=== PATIENT | male | born 1935 | race Caucasian/White ===

== ENCOUNTER 2016-09-12 09:56 | Day surgery (SDC) | payer OTHER ==
--- NOTE | 2016-08-29 16:07 | GHP ---
[f rep st] HISTORY AND PHYSICAL DATE OF ADMISSION: 09/09/2016 HISTORY OF PRESENT ILLNESS: The patient is a 80-year-old male, who comes to our office for the first time referred by Dr. Luke for evaluation of a right inguinal hernia. The patient reports pain, a palpable mass over his right groin and has had previous surgery in this area. The patient had hernia surgery on the left side. ALLERGIES: Amoxicillin, Bactrim, Levaquin, sulfa, Xarelto. MEDICATIONS: Ambien, aspirin, Bystolic, flecainide, Singulair, Nasacort, ProAir , Viagra. PAST MEDICAL HISTORY: Asthma, atrial fibrillation, bicuspid aortic valve. Erectile dysfunction. Pacemaker placement. Septic arthritis, left knee. PAST SURGICAL HISTORY: Arthroscopic shoulder surgery bilaterally. Left inguinal hernia surgery, and incision and drainage of left septic knee. SOCIAL HISTORY: 2 to 3 alcoholic drinks per day, nonsmoker, no illegal drug use. REVIEW OF SYSTEMS: Negative review of systems. PHYSICAL EXAM: GENERAL: The patient is an older male in no apparent distress. HEAD/NECK: Normocephalic, atraumatic. CHEST: CTA bilaterally. HEART: Regular rhythm and rate. ABDOMEN: Right inguinal hernia present. EXTREMITIES : No lower extremity edema. IMPRESSION: A 80-year-old male with a right inguinal hernia. RECOMMENDATION: Laparoscopic and likely open repair of right inguinal hernia was discussed with the patient in detail, patient elected to proceed with scheduling. Risks include recurrent hernia, infection, scrotal edema, hematoma or seroma development. The patient elects to proceed with scheduling surgery for 09/09/2016. Prior to surgery, he will obtain cardiac clearance from Dr. Cueto, who can be reached at [phone]. /[id number]/MODL MTDD
[~2016-09-12 09:56] MED LIST: BUPIVACAINE 0.5% 30 ML SDV ONE
[2016-09-12] MEDS ORDERED: LIDOCAINE 1% 5 ML SDV ONE (10:22)
[2016-09-12] MEDS ORDERED: LIDOCAINE 1% 5 ML SDV ID PRN (11:00)
[2016-09-12] MEDS ORDERED: ceFAZolin 2 GM/DEXTROSE 100 ML IV ONE (11:00)
[2016-09-12] MEDS ORDERED: LR 1,000 ML IV ONE (11:00)
[2016-09-12] MEDS ORDERED: PROPOFOL 200 MG/20 ML VIAL ONE (11:41)
[2016-09-12] MEDS ORDERED: fentaNYL 100 MCG/2 ML INJ ONE (11:41)
[2016-09-12] MEDS ORDERED: DEXAMETHASONE 4 MG/ML VIAL ONE (11:41)
[2016-09-12] MEDS ORDERED: ONDANSETRON 4 MG/2 ML VIAL ONE (11:41)
[2016-09-12] MEDS ORDERED: LIDOCAINE 2% 100 MG/5 ML SYR IVP ONE (11:41)
[2016-09-12] MEDS ORDERED: MIDAZOLAM 2 MG/2 ML VIAL ONE (12:36)
[2016-09-12] MEDS ORDERED: ROCURONIUM 50 MG/5 ML VIAL ONE (12:47)
[2016-09-12] MEDS ORDERED: PHENYLEPHRINE HCL 100 MCG/ML SYR ONE (13:10)
[2016-09-12] MEDS ORDERED: SUGAMMADEX SODIUM 200 MG/2 ML VIAL IVP ONE (13:51)
[2016-09-12] MEDS ORDERED: HYDROCODONE/APAP 5/325 TAB ONE (14:49)
--- NOTE | 2016-09-14 17:52 | GOP ---
[f rep st] OPERATIVE REPORT DATE OF OPERATION: 09/12/2016 SURGEON: Andrew Manning MD PAVER OPERATOR: KAREN Mac ANESTHESIOLOGIST: Dr. Marcos PREOPERATIVE DIAGNOSIS: Right inguinal hernia. POSTOPERATIVE DIAGNOSIS: Right inguinal hernia and recurrent left inguinal hernia. PROCEDURE PERFORMED: Lap bilateral inguinal hernioraphies, recurrent on left FINDINGS: Patient was found to have bilateral direct and femoral hernias, left and right. Right was much larger than the left. There were no indirect sacs. DESCRIPTION OF PROCEDURE: Patient taken to the operating room, where he received satisfactory general endotracheal anesthesia by Dr. Marcos. He was placed in the supine position, and prepped and draped in the usual sterile fashion. Infraumbilical incision was made. Dissection was carried to down the rectus sheath. Subfascial tunnel in the preperitoneal space, which was dissected free with a balloon dissector. That was replaced with a CO2 insufflation trocar. Two other trocars were placed in the midline under direct vision. Kirk's ligament was exposed bilaterally. The cords were mobilized bilaterally. Peritoneum was dissected off the cord structures. There were no significant indirect sacs. Bilateral direct defects and bilateral femoral defects were exposed. Their contents were reduced. On the right side, a Covidien polyester mesh patch was placed and secured in place with a Tacker, securing it to Kirk's ligament, to the lacunar ligament, to the anterior abdominal wall, and lateral abdominal wall outside the internal ring. Hemostasis was assured. On the left recurrent side, a 3D mesh polypropylene patch was placed. It was also anchored with the Tacker to Kirk's ligament, the lacunar ligament, to the anterior abdominal wall. Trocars were removed under direct vision. Pneumoperitoneum was released. Trocar sites were closed with 0 Vicryl for the fascia, 4-0 Vicryl subcuticular stitch for the skin. All layers were infiltrated with 0.5% Marcaine. Blood loss was negligible. There were no complications, was taken to the recovery room in good condition. /[id number]/MODL MTDD
== END 2016-09-12 16:17 | disposition home or self-care (01) ==
LOC: FSGY 09:56
PROVIDERS: ATTEND Surgery
DX: K40.21 Bilateral inguinal hernia, without obstruction or gangrene, recurrent (principal); K41.00 Bilateral femoral hernia, with obstruction, without gangrene, not specified as recurrent; I48.91 Unspecified atrial fibrillation; I10 Essential (primary) hypertension; J45.909 Unspecified asthma, uncomplicated; Q23.1 Congenital insufficiency of aortic valve; Z95.0 Presence of cardiac pacemaker
CPT/HCPCS: 49550; 49650; 49651; C1727; C1781; J0690; J1100; J2001; J2250; J2370; J2405; J2704; J3010

== ENCOUNTER → 2016-12-02 | Outpatient (CLI) | payer OTHER | LOC: CIMAGING 10:04 | PROVIDERS: ATTEND Nurse Practitioner | DX: R05 Cough (principal); J06.9 Acute upper respiratory infection, unspecified | CPT/HCPCS: 71020; G0463 ==

== ENCOUNTER 2017-07-05 22:48 | Emergency (ER) | payer OTHER ==
--- NOTE | 2017-07-05 22:53 | EDPHY ---
H & P Stated Complaint: Shortness of breath Time Seen by Provider: 07/05/17 22:52 HPI/ROS: CHIEF COMPLAINT: shortness of breath HISTORY OF PRESENT ILLNESS: see 81-year-old male with a comp complex history of bicuspid aortic valve, atrial fibrillation, tachy-melody syndrome with subsequent pacemaker, BPH who presents with shortness of breath. This began approximately noon today. Prior to that he had taken walking and felt well. He had no exercise intolerance at that time nor prior to this past week. [place] of breath has persisted all day. He feels like he cannot catch a full breath. However at the same token he is able to talk to me in full sentences. He does not feel like he has been bronchospastic however he did take 2 puffs of treatment of an inhaler at around 8 o'clock with no relief. He attempted to go to sleep, found it tough to utilize his mask well as he has a CPAP mask for sleep apnea would make an odd sound, did not give him relief, and so decided to come in. At no point today did he have any chest discomfort or soreness. There is no diaphoresis or pleuritic pain. He has had no recent prolonged immobilization or travel hospitalization. He does recall having 1 prior episode similar to this but they cannot find anything wrong with him Former smoker-quit when he was 42 No occupational exposure for lung disease He does have some underlying lung disease as he has an inhaler at home however cannot elaborate further. Never told he has emphysema. Has a CPAP mask for Sleep Apnea, no supplemental oxygen. Old chart review show O2 sats in mid to upper 90's on RA. PE/DVT risk factors Prior DVT/PE: No Immobilization: No Splint/Cast: No Surgery, recently: No Family history of hypercoaguable syndrome: No Unilateral leg swelling: No Obesity: No REVIEW OF SYSTEMS: Constitutional: No fever, no chills. Eyes: No discharge ENT: No sore throat. Cardiovascular: No chest pain, no palpitations. Respiratory: No cough or phlegm or wheezing. Gastrointestinal: No nausea vomiting or diarrhea. No abdominal pain. Genitourinary: No hematuria or frequency. Musculoskeletal: No back pain. No leg swelling or peripheral edema or calf pain. Skin: No rashes. Neurological: No headache. 10 point ROS otherwise negative Source: Patient Exam Limitations: No limitations - Personal History Tetanus Vaccine Date: 2009 - Medical/Surgical History PMH: Pacemaker for Bradycardia/ Atrial Fib / BPH/ HTN / Environmental Allergies Hx Asthma: Yes Hx Chronic Respiratory Disease: No Hx Diabetes: No Hx Cardiac Disease: No Hx Renal Disease: No Hx Cirrhosis: No Hx Alcoholism: No Hx HIV/AIDS: No Hx Splenectomy or Spleen Trauma: No Other PMH: bilateral shoulder surgery, inguinal hernia repair, BPH, arthritis, atrial tachycardia, asthma,seasonal allergies,htn. surg-bilat shoulder and pacemaker as well as green light prostate surgery - Family History Significant Family History: No pertinent family hx - Social History Smoking Status: Former smoker Alcohol Use: Heavy (2 drinks a day) Drug Use: None - Physical Exam Exam: General Appearance: Alert, no distress. Afebrile. Normal phonation. No respiratory distress. Speaks to me in full sentences. Thin man. Eyes: Pupils equal and round no pallor or injection. No icterus ENT, Mouth: Mucous membranes moist. Pharynx without erythema or exudate. TM Clear. Neck: No adenopathy. Supple. No JVD. Trachea in midline. Respiratory: There are no retractions, bibasilar dry brown slightly greater on the right. No rhonchi. Chest wall: Nontender to palpation. No crepitus. Cardiovascular: Regular rate and rhythm, no murmur. Rhythm strip shows paced rhythm. No JVD. Abdomen: Soft and nontender, no masses, bowel sounds normal. Femoral pulses equal. Neurological: Ox3. No motor weakness. Sensation intact. Gait nl. Skin: Warm and dry, no rashes. Musculoskeletal: No joint swelling. Extremities: No edema. Homans sign negative. No cords. Psychiatric: Normal affect. Patient is oriented X 3. Constitutional: Initial Vital Signs Temperature (C) 36.4 C 07/05/17 22:50 Heart Rate 60 07/05/17 22:50 Respiratory Rate 15 07/05/17 22:50 Blood Pressure 139/104 H 07/05/17 22:50 O2 Sat (%) 100 07/05/17 22:50 O2 Delivery Mode Room Air Allergies/Adverse Reactions: amoxicillin Allergy (Intermediate, Verified 09/04/16 15:39) hands peel levofloxacin [From Levaquin] Allergy (Verified 09/04/16 15:39) Unknown sulfamethoxazole [From Bactrim] Allergy (Verified 09/04/16 15:39) Unknown trimethoprim [From Bactrim] Allergy (Verified 09/04/16 15:39) Unknown Home Medications: Medication Instructions Recorded Aspirin [Aspirin 325 mg (*)] HS 02/20/15 Montelukast Sodium [Singulair 10 HS 02/20/15 mg (*)] [place]-3 Fatty Acids [Fish Oil 1000 BID 02/20/15 mg (*)] Bystolic 5 mg (*) HS 09/04/16 Flecainide Acetate BID 09/04/16 Herbals/Supplements -Info Only 09/04/16 Nasacort HS 09/04/16 Zolpidem Tartrate [Ambien 10 mg] 07/05/17 Medical Decision Making - Diagnostics EKG Interpretation: Ekg interpreted by me contemporaneously - See seperate report in [facility]. Summary: Paced rhythm. Left bundle-branch pattern as result. Imaging Results: Chest x-ray: Two view chest. Interpreted by [me, contemporaneously]. Films reviewed by me on the PACS system. Normal mediastinum. Hyperinflation is noted. Some decrease in pulmonary parenchyma compatible with emphysema. No effusions. Stable chest, except for hyperinflation. Imaging: I viewed and interpreted images myself ED Course/Re-evaluation: His O2 sat on room air was acceptable. His place on a continuous pulse oximeter on heart monitor. He continued to manifest left bundle branch block in the setting of pacemaker. At times his O2 sat would drop into the mid to high 80s such as 86-88 when sleeping as his respiratory rate would be around 8. This would come back up as soon as he became awake. A trial ventilation therapy was given with a DuoNeb any felt no better he still is sense that he could not get his full breath Laboratory studies as follows: Stable hemogram Normal WBC Undetectable troponin Negative D-dimer BNP normal Case reviewed with the ongoing hospitalist as he has left bundle-branch block. Dr. Soto related he was safe for outpatient evaluation and follow-up with his venetian blind cleaner and repairer Differential Diagnosis: Differential diagnosis includes but is not limited to the following: ACS, myocardial infarction, pneumothorax, pleurisy, pulmonary embolus, CHF, Pneumonia, bronchospasm, Asthma, anxiety, muscle strain. - Data Points Laboratory Results: Laboratory Results 07/05/17 23:02 07/05/17 23:02 07/05/17 07/05/17 07/05/17 23:02 23:02 23:02 WBC 8.50 10^3/uL 10^3/uL (3.80-9.50) RBC 4.64 10^6/uL 10^6/uL (4.40-6.38) Hgb 15.4 g/dL g/dL (13.7-17.5) Hct 45.0 % % (40.0-51.0) MCV 97.0 fL fL (81.5-99.8) MCH 33.2 pg pg (27.9-34.1) MCHC 34.2 g/dL g/dL (32.4-36.7) RDW 12.6 % % (11.5-15.2) Plt Count 215 10^3/uL 10^3/uL (150-400) MPV 11.5 fL fL (8.7-11.7) Neut % (Auto) 44.0 % % (39.3-74.2) Lymph % (Auto) 36.7 % % (15.0-45.0) [place] % (Auto) 8.2 % % (4.5-13.0) Eos % (Auto) 10.2 % H % (0.6-7.6) Baso % (Auto) 0.5 % % (0.3-1.7) Nucleat RBC Rel Count 0.0 % % (0.0-0.2) Absolute Neuts (auto) 3.74 10^3/uL 10^3/uL (1.70-6.50) Absolute Lymphs (auto) 3.12 10^3/uL H 10^3/uL (1.00-3.00) Absolute Monos (auto) 0.70 10^3/uL 10^3/uL (0.30-0.80) Absolute Eos (auto) 0.87 10^3/uL H 10^3/uL (0.03-0.40) Absolute Basos (auto) 0.04 10^3/uL 10^3/uL (0.02-0.10) Absolute Nucleated RBC 0.00 10^3/uL 10^3/uL (0-0.01) Immature Gran % 0.4 % % (0.0-1.1) Immature Gran # 0.03 10^3/uL 10^3/uL (0.00-0.10) D-Dimer 0.32 ug/mLFEU ug/mLFEU (0.00-0.50) Sodium 142 mEq/L mEq/L (134-144) Potassium 4.0 mEq/L mEq/L (3.5-5.2) Chloride 104 mEq/L mEq/L (97-110) Carbon Dioxide 26 mEq/l mEq/l (22-31) Anion Gap 12 mEq/L mEq/L (8-16) BUN 21 mg/dL mg/dL (7-23) Creatinine 1.1 mg/dL mg/dL (0.7-1.3) Estimated GFR > 60 Glucose 79 mg/dL mg/dL (70-100) Calcium 10.0 mg/dL mg/dL (8.5-10.4) Magnesium 2.0 mg/dL mg/dL (1.6-2.3) Troponin I < 0.012 ng/mL ng/mL (0.000-0.034) NT-Pro-B Natriuret Pep 134 pg/mL pg/mL (0-450) Medications Given: Discontinued Medications Albuterol/Ipratropium (Duoneb) 3 ml IH EDNOW ONE Stop: 07/05/17 23:37 Last Admin: 07/05/17 23:41 Dose: 3 ml Departure - Departure Disposition: Home, Routine, Self-Care Clinical Impression: Trouble breathing, Sleep apnea in adult Condition: Good Instructions: Dyspnea (ED) Additional Instructions: No change in medications Continue use her CPAP mask Call your venetian blind cleaner and repairer for recheck, Thursday morning Referrals: NONE *PRIMARY CARE P,. [Primary Care Provider] - As per Instructions
--- NOTE | 2017-07-05 22:59 | CPEKG ---
Heart Rate: 61 RR Interval: 984 P-R Interval: 199 QRSD Interval: 188 QT Interval: 492 QTC Interval: 496 QRS [place]: -77 T Wave [place]: 87 EKG Severity - ABNORMAL ECG - EKG Impression: ATRIAL and VENTRICULAR -PACED COMPLEXES Electronically Signed By: Gerson Morataya 13-Jul-2017 12:36:06
--- NOTE | 2017-07-05 22:59 | CPEKG ---
Heart Rate: 61 RR Interval: 984 P-R Interval: 199 QRSD Interval: 188 QT Interval: 492 QTC Interval: 496 QRS [place]: -77 T Wave [place]: 87 EKG Severity - ABNORMAL ECG - EKG Impression: ATRIAL and VENTRICULAR -PACED COMPLEXES Electronically Signed By: Gerson Morataya 13-Jul-2017 12:36:06
[2017-07-05 23:02] VITALS: TEMP 97.5
[2017-07-05 23:14] LABS: PLATELET COUNT 215 10^3/uL (150-400)
[2017-07-05] MEDS ORDERED: IPRATROPIUM/ALBUTEROL 3 ML DEYVIAL IH ONE (23:36)
[2017-07-06 00:54] VITALS: BP 113/75; PULSE 71; RESP 15; O2SAT 96
== END 2017-07-06 01:04 | disposition home or self-care (01) ==
LOC: CED 22:48
DX: R06.00 Dyspnea, unspecified (principal); G47.30 Sleep apnea, unspecified; J45.909 Unspecified asthma, uncomplicated; I10 Essential (primary) hypertension; Z79.82 Long term (current) use of aspirin; Z87.891 Personal history of nicotine dependence; Z95.0 Presence of cardiac pacemaker
CPT/HCPCS: 71020-PO; 80048-PO; 83735-PO; 83880-PO; 84484-PO; 85025-PO; 85378-PO

== ENCOUNTER → 2017-07-13 | Outpatient (CLI) | payer OTHER | LOC: FLAB 08:21 | PROVIDERS: ATTEND Internal Medicine | PROC: CP1Z1ZZ Planar Nuclear Medicine Imaging of Musculoskeletal System, All using Technetium 99m (Tc-99m) (ICD-10-PCS; principal; 2017-07-13) | DX: Z03.89 Encounter for observation for other suspected diseases and conditions ruled out (principal) | CPT/HCPCS: 78306; A9503 ==

== ENCOUNTER 2017-07-25 17:09 | Emergency (ER) | payer OTHER ==
[2017-07-25 17:19] VITALS: TEMP 97.5
--- NOTE | 2017-07-25 18:14 | EDPHY ---
H & P Stated Complaint: abd pain HPI/ROS: CHIEF COMPLAINT: Abdominal pain HISTORY OF PRESENT ILLNESS: The patient is a 81 y/o male with a pacemaker complaining of diffuse abdominal and mild back pain since yesterday morning. 6 days ago he saw his cash grain grower for shortness of breath and was diagnosed with inflammation of his lungs. He was prescribed Prednisone, which he took for 5 days. His last dose of Prednisone was yesterday at 13:00. His shortness of breath went away on his first day of prednisone. Two days ago he used a water enema after not moving his bowels for 4 days (not unusual for him). The enema produced some stool but he has not had a bowel movement since. Yesterday morning he developed diffuse waxing and waning abdominal pain as well as increased flatus. He took an antacid , Zantac, and GasX which provided no relief. Currently his abdominal pain is the worst it has been. It is constant, diffuse. Admits to drinking 2 alcoholic drinks a day. Denies nausea, vomiting, diarrhea, fever, dysuria, history of abdominal surgeries. REVIEW OF SYSTEMS: A ten point review of systems was performed and is negative with the exception of the items mentioned in the HPI. Past medical history: Hypertension Atrial tachycardia Asthma Constipation Past surgical history: Pacemaker Bilateral shoulder surgery Green light prostate surgery Family history: Denies Social history: at bedside Lives in [facility] General Appearance: Alert. Vital signs reviewed. Blood pressure 135/88. Eyes: Pupils equal and round, no conjunctival injection, no discharge. Anicteric. ENT, Mouth: Mucous membranes are moist, no oropharyngeal erythema or edema. Neck: No lymphadenopathy, supple. Respiratory: Lungs are clear to auscultation; no wheezes, rales, or rhonchi. Cardiovascular: Regular rate and rhythm; no murmur, rub, or gallop. Gastrointestinal: Midepigastric and RLQ tenderness. Abdomen is soft, no masses or organomegaly, bowel sounds normal. No peritoneal signs. Skin: Warm and dry, no rashes on exposed skin, normal color. Back: Nontender to palpation over the thoracolumbar spine. No CVAT. Extremities: No lower extremity edema, no calf tenderness or swelling. Neurological: Alert and oriented. Moving all four extremities easily and equally. Psychiatric: Normal affect. - Personal History Current Tetanus/Diphtheria Vaccine: Yes Tetanus Vaccine Date: 2010 - Medical/Surgical History Hx Asthma: Yes Hx Chronic Respiratory Disease: No Hx Diabetes: No Hx Cardiac Disease: Yes Hx Renal Disease: No Hx Cirrhosis: No Hx Alcoholism: No Hx HIV/AIDS: No Hx Splenectomy or Spleen Trauma: No Other PMH: bilateral shoulder surgery, inguinal hernia repair, BPH, arthritis, atrial tachycardia, asthma,seasonal allergies,htn. surg-bilat shoulder and pacemaker as well as green light prostate surgery - Social History Smoking Status: Former smoker Constitutional: Initial Vital Signs Temperature (C) 36.4 C 07/25/17 17:16 Heart Rate 73 07/25/17 17:16 Respiratory Rate 16 07/25/17 17:16 Blood Pressure 135/88 H 07/25/17 17:16 O2 Sat (%) 96 07/25/17 17:16 O2 Delivery Mode Room Air Allergies/Adverse Reactions: amoxicillin Allergy (Intermediate, Verified 07/25/17 17:14) hands peel levofloxacin [From Levaquin] Allergy (Verified 07/25/17 17:14) Unknown Sulfa (Sulfonamide Antibiotics) Allergy (Verified 07/25/17 17:14) sulfamethoxazole [From Bactrim] Allergy (Verified 07/25/17 17:14) Unknown trimethoprim [From Bactrim] Allergy (Verified 07/25/17 17:14) Unknown Home Medications: Medication Instructions Recorded Aspirin [Aspirin 325 mg (*)] HS 02/20/15 Montelukast Sodium [Singulair 10 HS 02/20/15 mg (*)] [place]-3 Fatty Acids [Fish Oil 1000 BID 02/20/15 mg (*)] Bystolic 5 mg (*) HS 09/04/16 Flecainide Acetate BID 09/04/16 Herbals/Supplements -Info Only 09/04/16 Nasacort HS 09/04/16 Zolpidem Tartrate [Ambien 10 mg] 07/05/17 Flovent 110 MCG Hfa MDI (*) 07/25/17 Medical Decision Making Procedures: The patient is a 81 y/o male presenting with midepigastric and RLQ tenderness. He has also been constipated more than usual. 75mcg IV Fentanyl administered. 1930: Reassessed patient, he is feeling much better and no longer has pain after Fentanyl. 2009: 30mL PO Maalox, 5mL PO Lidocaine, and 40mg IV Protonix administered. 2017: Reassessed patient, his pain is back but it is greatly reduced compared to when he initially presented to the ED. He is also having mild pain on the left side of his back. I discussed his negative lab results--WBC slightly up at 10.7, all else normal. BMP, LFTs, lipase all normal. Labs indicate that this is unlikely to be cholecystitis, pancreatitis. UA without evidence of infection ; no blood and I think kidney stone unlikely.He has had several colonoscopies without any abnormal results. Since his pain has not resolved an abdominopelvic CT will be preformed. CT shows moderate constipation, no other explanation for his pain. No ureterolithiasis (although the CT was done with contrast, not designed to look for ureteral stone). No appendicitis. No diverticulitis. His pain could be secondary to prednisone. Another consideration is constipation. Results relayed to patient. He is comfortable returning home. - Data Points Laboratory Results: Laboratory Results 07/25/17 18:50 07/25/17 18:50 Medications Given: Discontinued Medications Al Hydroxide/Mg Hydroxide (Maalox Susp) 30 ml PO EDNOW ONE Stop: 07/25/17 20:00 Last Admin: 07/25/17 20:09 Dose: 30 ml Fentanyl (Sublimaze) 75 mcg IVP EDNOW ONE Stop: 07/25/17 18:29 Last Admin: 07/25/17 19:00 Dose: 75 mcg Fentanyl (Sublimaze) 50 mcg IVP EDNOW ONE Stop: 07/25/17 21:24 Last Admin: 07/25/17 21:37 Dose: 50 mcg Lidocaine (Lidocaine 2% Viscous) 5 ml PO EDNOW ONE Stop: 07/25/17 20:00 Last Admin: 07/25/17 20:09 Dose: 5 ml Pantoprazole Sodium (Protonix) 40 mg IVP EDNOW ONE Stop: 07/25/17 19:59 Last Admin: 07/25/17 20:08 Dose: 40 mg Departure - Departure Disposition: Home, Routine, Self-Care Clinical Impression: Abdominal pain Qualifiers: Abdominal location: epigastric Qualified Code(s): R10.13 - Epigastric pain Condition: Good Instructions: Acute Abdominal Pain (ED) Additional Instructions: As we discussed, it is not clear what is causing your abdominal pain. I agree that it might be due to the prednisone you have been taking. I recommend that you continue with an acid blocking medication, such as Zantac or Prilosec. You can buy these [id number]. If you have new or concerning symptoms--unremitting severe pain, fever, vomiting , diarrhea--you should return for another evaluation. Follow up with your primary care physician. Referrals: Keshia Luke MD [Primary Care Provider] - As per Instructions Report Scribed for: Mine Jaramillo Report Scribed by: Vesna Mcguire Date of Report: 07/25/17 Time of Report: 18:43 Physician Review and Approval Statement: 07/25/17 18:14 Portions of this note were transcribed by the medical customer service representative. I, Dr. Mine Jaramillo, personally performed the history, physical exam, and medical decision- making; and confirmed the accuracy of the information in the transcribed note.
[2017-07-25] MEDS ORDERED: fentaNYL 100 MCG/2 ML INJ IVP ONE ×2 (18:28→21:23)
[2017-07-25 19:06] LABS: % IMMATURE GRANULYOCYTES 0.5 % (0.0-1.1); ABSOLUTE IMMATURE GRANULOCYTES 0.05 10^3/uL (0.00-0.10); ADD DIFF? NO; ADD MORPH? NO; ADD SCAN? NO; ATYPICAL LYMPHOCYTE FLAG 0 (0-99); FRAGMENT RBC FLAG 0 (0-99); HEMATOCRIT 42.4 % (40.0-51.0); HEMOGLOBIN 14.4 g/dL (13.7-17.5); LEFT SHIFT FLG 0 (0-99); LIPEMIA HEMOLYSIS FLAG 90 (0-99); MEAN CELL HEMOGLOBIN 33.3 pg (27.9-34.1); MEAN CELL VOLUME 97.9 fL (81.5-99.8); MEAN PLATELET VOLUME 11.9 fL (8.7-11.7); PLATELET CLUMPS FLAG 20 (0-99); PLATELET COUNT 203 10^3/uL (150-400); RED BLOOD CELL COUNT 4.33 10^6/uL (4.40-6.38); RED CELL DISTRIBUTION WIDTH 12.5 % (11.5-15.2)
[2017-07-25 19:21] LABS: ALANINE AMINOTRANSFERASE 36 IU/L (21-72); ALKALINE PHOSPHATASE 48 IU/L (38-126); ANION GAP 12 mEq/L (8-16); ASPARTATE AMINOTRANSFERASE 23 IU/L (17-59); BILIRUBIN,TOTAL 0.6 mg/dL (0.1-1.4); BILIRUBIN-UNCONJUGATED 0.6 mg/dL (0.0-1.1); CALCIUM 9.3 mg/dL (8.5-10.4); CARBON DIOXIDE 25 mEq/l (22-31); CHLORIDE 100 mEq/L (97-110); CREATININE 1.2 mg/dL (0.7-1.3); GLOMERULAR FILTRATION RATE 58; GLUCOSE 90 mg/dL (70-100); POTASSIUM 3.7 mEq/L (3.5-5.2); SODIUM 137 mEq/L (134-144); TOTAL PROTEIN 6.4 g/dL (6.3-8.2)
[2017-07-25 19:39] LABS: COLOR YELLOW; LEUKOCYTE ESTERASE,URINE NEGATIVE (NEGATIVE); NITRITE,URINE NEGATIVE (NEGATIVE)
[2017-07-25] MEDS ORDERED: PANTOPRAZOLE SODIUM 40 MG VIAL IVP ONE (19:58)
[2017-07-25] MEDS ORDERED: LIDOCAINE 2% VISCOUS 15 ML UDCUP PO ONE (19:59)
[2017-07-25] MEDS ORDERED: MAG HYDROX/AL HYDROX/SIMETH 30 ML UDCUP PO ONE (19:59)
[2017-07-25] MEDS ORDERED: IOPAMIDOL (ISOVUE-300) 100 ML BTL ONE (20:39)
[2017-07-25 21:38] VITALS: PULSE 65; RESP 16; O2SAT 93
[2017-07-25 22:39] VITALS: BP 100/81
== END 2017-07-25 22:37 | disposition home or self-care (01) ==
DX: R10.13 Epigastric pain (principal); I10 Essential (primary) hypertension; J45.909 Unspecified asthma, uncomplicated; Z79.82 Long term (current) use of aspirin; Z87.891 Personal history of nicotine dependence; Z95.0 Presence of cardiac pacemaker
CPT/HCPCS: 74177; 96374; 96375; 96376; 99285; J3010; Q9967

== ENCOUNTER → 2018-06-28 | Outpatient (CLI) | payer OTHER ==
[~2018-06-28] MED LIST changes: -BUPIVACAINE 0.5% 30 ML SDV ONE; +IOPAMIDOL (ISOVUE-300) 100 ML BTL ONE
== END ==
LOC: FIMAGING 12:30
PROVIDERS: ATTEND Internal Medicine
DX: J18.9 Pneumonia, unspecified organism (principal); N28.89 Other specified disorders of kidney and ureter; N28.1 Cyst of kidney, acquired; K59.00 Constipation, unspecified; I70.0 Atherosclerosis of aorta; R91.8 Other nonspecific abnormal finding of lung field
CPT/HCPCS: 71260; 74178; Q9967

== ENCOUNTER 2018-11-03 19:16 | Observation (INO) | payer OTHER ==
--- NOTE | 2018-11-03 19:52 | EDPHY ---
H & P Stated Complaint: cough, fever since thursday Time Seen by Provider: 11/03/18 19:24 HPI/ROS: CHIEF COMPLAINT: Cough, fever, chills HISTORY OF PRESENT ILLNESS: 82-year-old male with a history of pneumonia, asthma, atrial tachycardia, pacemaker in place, on flecainide, presents to the emergency department reporting that 4 days ago he developed a cough. No fever at that time. He was in [place]. He was seen at emergency department diagnosis the viral syndrome. Per his report he had chest x-ray which was normal as well as labs which were reassuring. Family drove back from [place] after this visit. Patient reports he has continued to have worsening cough, productive of phlegm, and today developed a fever to 102. No reports of chest pain about he does feel short of breath. He reports chills. No nausea, vomiting, or diarrhea. No headache. Some weakness. Did receive an influenza vaccination this year. REVIEW OF SYSTEMS: A comprehensive 10 system review of systems was reviewed and is otherwise negative aside from elements mentioned in the history of present illness and medical decision making. PAST MEDICAL HISTORY: Asthma, pneumonia, hypertension, atrial tachycardia, pacemaker. No history of myocardial infarction, coronary artery disease, pulmonary emboli. SOCIAL HISTORY: Here with his . VITAL SIGNS Reviewed by me. O2 sat 91%. Temperature 37.2 degrees. Heart rate 88. GENERAL: Well-developed, well-nourished, resting comfortably in no respiratory distress. HEENT: Atraumatic. Eyes: No icterus, no injection. Mouth: moist mucous membranes. Slight posterior erythema or lesions. Neck: supple with no adenopathy. LUNGS: Faint wheezes right lower lobe, rhonchi right lower lobe posteriorly. CARDIAC: Regular rate and rhythm, no rubs, murmurs or gallops. ABDOMEN: Soft, nontender, nondistended, bowel sounds normal. BACK: No CVA tenderness. EXTREMITIES: No trauma. No edema. Range of motion is normal throughout. NEURO: Alert and oriented, grossly nonfocal. SKIN: Warm and dry, no rash. PSYCHIATRIC: Normal mentation, no agitation. - Personal History Current Tetanus Diphtheria and Acellular Pertussis (TDAP): Yes Tetanus Vaccine Date: 2009 - Medical/Surgical History Hx Asthma: Yes Hx Chronic Respiratory Disease: No Hx Diabetes: No Hx Cardiac Disease: Yes Hx Renal Disease: No Hx Cirrhosis: No Hx Alcoholism: No Hx HIV/AIDS: No Hx Splenectomy or Spleen Trauma: No Other PMH: bilateral shoulder surgery, inguinal hernia repair, BPH, arthritis, atrial tachycardia, asthma,seasonal allergies,htn. surg-bilat shoulder and pacemaker as well as green light prostate surgery - Social History Smoking Status: Former smoker Constitutional: Initial Vital Signs Temperature (C) 37.2 C 11/03/18 19:24 Heart Rate 88 11/03/18 19:24 Respiratory Rate 16 11/03/18 19:24 Blood Pressure 111/68 11/03/18 19:24 O2 Sat (%) 91 L 11/03/18 19:24 O2 Delivery Mode Nasal Cannula O2 (L/minute) 3 Allergies/Adverse Reactions: amoxicillin Allergy (Intermediate, Verified 11/04/18 08:23) Itching levofloxacin [From Levaquin] Allergy (Verified 11/04/18 08:23) Itching Sulfa (Sulfonamide Antibiotics) Allergy (Verified 11/04/18 08:23) Hives sulfamethoxazole [From Bactrim] Allergy (Verified 11/04/18 08:23) Hives trimethoprim [From Bactrim] Allergy (Verified 11/04/18 08:23) Hives Home Medications: Medication Instructions Recorded Aspirin [Aspirin 325 mg (*)] 325 mg PO HS 02/20/15 Montelukast Sodium [Singulair 10 10 mg PO HS 02/20/15 mg (*)] [place]-3 Fatty Acids [Fish Oil 1000 1,000 mg PO BID 02/20/15 mg (*)] Flecainide Acetate 50 mg PO BID 09/04/16 Herbals/Supplements -Info Only 1 ea PO DAILY 09/04/16 Nebivolol HCl [Bystolic 5 mg (*)] 5 mg PO HS 09/04/16 Triamcinolone Acetonide [Nasacort] 1 spray NS DAILY PRN 09/04/16 Fluticasone Hfa 110 Mcg [Flovent 2 puffs IH BID 07/25/17 110 MCG Hfa MDI (*)] Zolpidem Tartrate [Ambien 5MG (*)] 2.5 mg PO HS PRN 11/04/18 Medical Decision Making - Diagnostics EKG Interpretation: 12-LEAD EKG: Please see the full report in [facility]. My interpretation: Atrial paced rhythm Imaging Results: CXR: Impression: 1. Subsegmental atelectasis suspected at the left base. Dictated By: Karson Villafana MD Imaging: Discussed imaging studies w/ integration lead Radiologist ED Course/Re-evaluation: The patient presents to the ED with potential infection identified as pneumonia/ influenza. The patient did have a temperature greater than 38 degrees C by history. Heart rate is 88, respiratory rate is 18, O2 sat 91%. White blood cell count 7.1 Patient's lactic acid is 0.8. Patient's chest x-ray did not demonstrate an acute infiltrate. Influenza PCR was positive for influenza A. Patient received a neb treatment in the emergency department with minimal relief of his cough. He was noted to desaturate to 86% with a good waveform while resting here in the emergency department. Given his history of asthma and prior history of pneumonia, as well as his diagnosis of influenza, patient will be admitted to the hospital for supportive care. Patient did not have evidence of severe sepsis (lactic acid greater than 2, INR greater than 1.5, platelets less than 100,000, bilirubin greater than 2, creatinine greater than 2, systolic blood pressure less than 90 or MAP less than 65, or the need for intubation or positive pressure ventilation). Patient's course was discussed with Dr. Neela Couch. He was admitted to [facility], [facility] surg bed, for further evaluation and treatment of his shortness of breath, hypoxemia, cough, and influenza a. Differential Diagnosis: Differential diagnosis for the patient's cough was considered including but not limited to viral versus bacterial bronchitis, asthma, COPD, pulmonary emboli, upper respiratory infection, lower respiratory infection, influenza, pneumonia, and bronchospasm. Consult/Admit Bed Type: Dr. Moreno, [facility] surg - Data Points Medications Given: Acetaminophen (Tylenol) 650 mg PO Q4HRS PRN PRN Reason: Pain, Mild/Fever, Can Take PO Stop: 05/02/19 23:38 Last Admin: 11/04/18 15:46 Dose: 650 mg Albuterol (Proventil Neb) 3 ml IH Q2HRS PRN PRN Reason: Short of Breath/Dyspnea Stop: 05/02/19 23:38 Last Admin: 11/04/18 18:36 Dose: 3 ml Aspirin (Aspirin) 325 mg PO HS KAYLEE Stop: 05/03/19 20:59 Last Admin: 11/04/18 20:12 Dose: 325 mg Benzonatate (Tessalon Pearles) 100 mg PO TID PRN PRN Reason: Cough, Mild Stop: 05/02/19 23:49 Last Admin: 11/04/18 13:30 Dose: 100 mg Enoxaparin Sodium (Lovenox) 40 mg SC DAILY KAYLEE Stop: 05/03/19 08:59 Last Admin: 11/04/18 10:05 Dose: 40 mg Flecainide Acetate (Tambocor) 50 mg PO BID KAYLEE Stop: 05/03/19 09:59 Last Admin: 11/04/18 20:13 Dose: 50 mg Fluticasone Propionate (Flovent Hfa) 2 puffs IH BID KAYLEE Stop: 05/03/19 09:44 Last Admin: 11/04/18 19:53 Dose: 2 puffs Guaifenesin (Mucinex) 1,200 mg PO BID KAYLEE Stop: 05/03/19 11:14 Last Admin: 11/04/18 20:12 Dose: 1,200 mg Lorazepam (Ativan) 0.5 mg PO HS PRN PRN Reason: Sleep/Insomnia Stop: 05/03/19 19:27 Last Admin: 11/04/18 20:11 Dose: 0.5 mg Montelukast Sodium (Singulair) 10 mg PO HS [facility] Stop: 05/03/19 20:59 Last Admin: 11/04/18 20:12 Dose: 10 mg Nebivolol (Bystolic) 5 mg PO HS [facility] Stop: 05/03/19 20:59 Last Admin: 11/04/18 20:11 Dose: 5 mg Fnxon-0-Syil Ethyl Esters (Fish Oil) 1,000 mg PO BID KAYLEE Stop: 05/03/19 20:59 Last Admin: 11/04/18 20:11 Dose: 1,000 mg Oseltamivir Phosphate (Tamiflu) 75 mg PO BIDMEAL KAYLEE Stop: 11/08/18 08:01 Last Admin: 11/04/18 18:23 Dose: 75 mg Discontinued Medications Albuterol (Proventil Neb) 3 ml IH EDNOW ONE Stop: 11/03/18 19:57 Last Admin: 11/03/18 20:23 Dose: 3 ml Sodium Chloride (Ns) 1,000 mls @ 0 mls/hr IV ONCE ONE; Wide Open PRN Reason: Protocol Stop: 11/03/18 20:39 Last Admin: 11/03/18 21:05 Dose: 1,000 mls Sodium Chloride (Ns) 1,000 mls @ 100 mls/hr IV CONT KAYLEE Stop: 05/02/19 23:38 Last Admin: 11/04/18 00:07 Dose: 1,000 mls Oseltamivir Phosphate (Tamiflu Oral Suspension) 30 mg PO BIDMEAL KAYLEE Stop: 11/08/18 08:01 Last Admin: 11/04/18 10:09 Dose: Not Given Zolpidem Tartrate (Ambien) 2.5 mg PO HS ONE Stop: 11/03/18 23:50 Last Admin: 11/04/18 01:41 Dose: 2.5 mg Point of Care Test Results: CBC CBC Collection Date 11/03/18 CBC Collection Time 19:54 WBC 7.11 RBC 4.19 HGB 13.6 HCT 41.5 PLT 176 Neut # 5.14 Neut 72.2 LYMPH # 1.23 LYMPH 17.3 MCV 99.0 Chemistry 11/03/18 11/03/18 20:06 20:02 POC Sodium 136 mEq/L mEq/L (135-145) POC Potassium 3.4 mEq/L mEq/L (3.3-5.0) POC Chloride 102.0 mEq/L mEq/L (97-110) POC Total CO2 24 mEq/L mEq/L (22-31) POC BUN 16 mg/dL mg/dL (7-23) POC Creatinine 1.3 mg/dL mg/dL (0.7-1.3) POC Glucose 111 mg/dL H mg/dL (70-100) POC Calcium 9.2 mg/dL mg/dL (8.5-10.4) POC Total Bilirubin 1.0 mg/dL mg/dL (0.1-1.4) POC AST 60 IU/L H IU/L (17-59) POC ALT 43 IU/L IU/L (21-72) POC Alk Phosphatase 76 IU/L IU/L (38-126) POC Troponin I 0.01 ng/mL ng/mL (0.00-0.08) POC Total Protein 7.1 g/dL g/dL (6.3-8.2) POC Albumin 3.6 g/dL g/dL (3.5-5.0) Blood Gas/Lactic Acid-Venous 11/03/18 20:10 POC Lactic Acid Tristan 0.8 mmol/L mmol/L (0.7-2.1) Influenza PCR Flu Nasal Swab Collection Date 11/03/18 Flu Nasal Swab Collection Time 20:15 Influenza A Result Detected Influenza B Result Not Detected Departure - Departure Disposition: [facility] Inpatient Acute Clinical Impression: Influenza A, Cough, Hypoxemia Condition: Fair
[2018-11-03] MEDS ORDERED: ALBUTEROL 3 ML DEYVIAL IH ONE (19:56)
[2018-11-03] MEDS ORDERED: NS 1,000 ML IV ONE (20:38)
[2018-11-03] MEDS ORDERED: ONDANSETRON 4 MG/2 ML VIAL IVP PRN (23:39)
[2018-11-03] MEDS ORDERED: ONDANSETRON DISINTEGRATING 4 MG TAB PO PRN (23:39)
[2018-11-03] MEDS ORDERED: NS 1,000 ML IV SCH (23:39)
[2018-11-03] MEDS ORDERED: ZOLPIDEM TARTRATE 5 MG TAB PO ONE (23:49)
[2018-11-03] MEDS ORDERED: BENZONATATE 100 MG CAP PO PRN (23:50)
[2018-11-04] MEDS: OSELTAMIVIR 6 MG/ML UDSYR PO SCH ×2 (00:07→10:09)
[2018-11-04] MEDS: ACETAMINOPHEN 325 MG TAB PO PRN ×2 (01:38→15:46)
--- NOTE | 2018-11-04 04:39 | PDGENHP ---
History and Physical - Chief Complaint Cough - History of Present Illness 82 yo M w/ HTN and mild, intermittent asthma presents with cough and fatigue. The patient developed a cough 3 days ago in [place] and went to an urgent care for evaluation. A CXR was clear so they sent him home with viral precautions. They drove back from [place] and he then developed worsening fatigue, fever, and chills so [place] [facility] [place] [facility] [place] was diagnosed with influenza A. In addition, his O2 sats were noted to be in the mid to high 80's on RA so he is being admitted for observation. At the time of my evaluation the patient is only complaining of fatigue. He is requiring 2 L /min O2 to maintain O2 sats. Case discussed with Dr. Couch; records reviewed and summarized above. History Information - Allergies/Home Medication List Allergies/Adverse Reactions: amoxicillin Allergy (Intermediate, Verified 07/25/17 17:14) hands peel levofloxacin [From Levaquin] Allergy (Verified 07/25/17 17:14) Unknown Sulfa (Sulfonamide Antibiotics) Allergy (Verified 07/25/17 17:14) sulfamethoxazole [From Bactrim] Allergy (Verified 07/25/17 17:14) Unknown trimethoprim [From Bactrim] Allergy (Verified 07/25/17 17:14) Unknown Home Medications: Aspirin [Aspirin 325 mg (*)] HS 02/20/15 [Last Taken 02/19/15] Montelukast Sodium [Singulair 10 mg (*)] HS 02/20/15 [Last Taken 02/19/15] [place]-3 Fatty Acids [Fish Oil 1000 mg (*)] BID 02/20/15 [Last Taken Unknown] Bystolic 5 mg (*) HS 09/04/16 [Last Taken Unknown] Flecainide Acetate BID 09/04/16 [Last Taken Unknown] Herbals/Supplements -Info Only 09/04/16 [Last Taken Unknown] Nasacort HS 09/04/16 [Last Taken Unknown] Zolpidem Tartrate [Ambien 10 mg] 07/05/17 [Last Taken Unknown] Flovent 110 MCG Hfa MDI (*) 07/25/17 [Last Taken Unknown] I have personally reviewed and updated: family history, medical history - Past Medical History asthma, hypertension - Surgical History Reports: hernia repair, pacemaker/AICD Additional surgical history: TURP. Bilateral shoulder surgery - Family History Positive for: cancer, diabetes type II - Social History Smoking Status: Former smoker Review of Systems Review of Systems: ROS: 10pt was reviewed & negative except for what was stated in HPI & below Physical Exam Physical Exam: Temp Pulse Resp BP Pulse Ox 36.5 C 70 18 118/79 92 11/04/18 03:36 11/04/18 03:36 11/04/18 03:36 11/04/18 03:36 11/04/18 03:36 O2 (L/minute) 2 Constitutional: appears nourished, uncomfortable Eyes: PERRL, scleral injection Ears, Nose, Mouth, Throat: moist mucous membranes, no oral mucosal ulcers Cardiovascular: regular rate and rhythym, no murmur, rub, or gallop Respiratory: no respiratory distress, reduced air movement, rhonchi Gastrointestinal: normoactive bowel sounds, soft, non-tender abdomen Skin: warm, normal color Musculoskeletal: full muscle strength, no muscle tenderness Neurologic: AAOx3, CN II-XII Intact Psychiatric: interacting appropriately, not anxious Lab Data & Imaging Review POC Sodium 136 mEq/L (135-145) 11/03/18 20:02 POC Potassium 3.4 mEq/L (3.3-5.0) 11/03/18 20:02 POC Chloride 102.0 mEq/L (97-110) 11/03/18 20:02 POC Total CO2 24 mEq/L (22-31) 11/03/18 20:02 POC BUN 16 mg/dL (7-23) 11/03/18 20:02 POC Creatinine 1.3 mg/dL (0.7-1.3) 11/03/18 20:02 POC Glucose 111 mg/dL (70-100) H 11/03/18 20:02 POC Lactic Acid Tristan 0.8 mmol/L (0.7-2.1) 11/03/18 20:10 POC Calcium 9.2 mg/dL (8.5-10.4) 11/03/18 20:02 POC Total Bilirubin 1.0 mg/dL (0.1-1.4) 11/03/18 20:02 POC AST 60 IU/L (17-59) H 11/03/18 20:02 POC ALT 43 IU/L (21-72) 11/03/18 20:02 POC Alk Phosphatase 76 IU/L (38-126) 11/03/18 20:02 POC Troponin I 0.01 ng/mL (0.00-0.08) 11/03/18 20:06 POC Total Protein 7.1 g/dL (6.3-8.2) 11/03/18 20:02 POC Albumin 3.6 g/dL (3.5-5.0) 11/03/18 20:02 Imaging Review: Imaging Impressions Chest X-Ray 11/03/18 19:32 Impression: 1. Subsegmental atelectasis suspected at the left base. Assessment & Plan Assessment: 82 yo M w/ HTN and mild, intermittent asthma presents with influenza A. Plan: 1. Influenza A - Symptoms present for 3 days; he is not displaying signs of sepsis physiology at this time and is only mildly hypoxic. - Admit for observation - mIVF, APAP PRN, cough suppressants PRN - Tamiflu BID - Droplet precautions 2. Hypoxia - O2 sats noted mid 80's on RA; requiring 2 L/min via NC to maintain O2 sats > 89%. - Continue O2 PRN - Incentive spirometry ordered - Albuterol PRN 3. Mild, intermittent asthma - Patient tells me his asthma is rarely an issue. He does not even have a rescue inhaler at home. I did not hear wheezing on my examination. - Albuterol PRN - Consider steroids if worsening 4. HTN - Continue home medications pending reconciliation 5. Hx PACs - S/p PPM Diet - Regular Code - Full Ppx - LMWH Dispo - Admit under observation status
[2018-11-04 05:04] LABS: PLATELET COUNT 147 10^3/uL (150-400)
--- NOTE | 2018-11-04 09:20 | ASMTCMCOM ---
CM Note CM Note Notes: Pts case discussed w/ Miriam Phipps NP. Pt is a 82 y/o man admitted for flu A, hypoxia, FOB and fever. Pt will most likely d/c independent when medically stable. No therapies ordered at this time. CM available for changes. Plan: Independent w/ supportive Date Signed: 11/04/2018 09:20 AM Electronically Signed By:KIA Christy
[2018-11-04] MEDS ORDERED: ZOLPIDEM TARTRATE 5 MG TAB PO PRN (09:37)
[2018-11-04] MEDS ORDERED: Triamcinolone Acetonide [Nasacort] 1 SPRAY NS PRN (09:37)
--- NOTE | 2018-11-04 09:39 | HOSPPROG ---
Hospitalist Progress Note Assessment/Plan: 82 yo M w/ HTN and mild, intermittent asthma presents with influenza A. First encounter, chart reviewed. *Influenza A -Tamiflu -droplet precautions *cough -very congested cough -Tessalon Perls and Mucinex *hypoxia -O2 sats on 2 liters 92% *mild intermittent asthma *htn -bp is stable *plan: Pepe is coughing frequently and has pain w deep breaths, has a hx of recent pna. His lungs have significant rhonchi and wheezing. He will another midnight stay for monitoring. Has been feeling poorly for several days. Subjective: Pepe is coughing frequently, tired. Objective: Vital Signs Temp Pulse Resp BP Pulse Ox 36.6 C 64 18 110/68 90 L 11/04/18 08:29 11/04/18 08:29 11/04/18 08:29 11/04/18 08:29 11/04/18 08:29 Laboratory Results 11/04/18 04:30 11/04/18 04:30 11/03/18 11/04/18 11/05/18 05:59 05:59 05:59 Intake Total 1700 Output Total 425 Balance 1275 - Physical Exam Constitutional: appears nourished, uncomfortable Eyes: PERRL Ears, Nose, Mouth, Throat: hearing normal Cardiovascular: regular rate and rhythym Respiratory: expiratory wheeze, rhonchi, other (frequent bouts of coughing), No no respiratory distress (mild ) Gastrointestinal: normoactive bowel sounds Skin: warm Musculoskeletal: generalized weakness Neurologic: AAOx3 Psychiatric: interacting appropriately ICD10 Worksheet Patient Problems: Problems Problem Status Onset Infective arthritis Active Abdominal pain Acute
[2018-11-04] MEDS: OSELTAMIVIR PHOSPHATE 75 MG CAP PO SCH ×2 (10:05→18:23)
[2018-11-04] MEDS: ENOXAPARIN 40 MG/0.4 ML SYR SC SCH (10:05)
[2018-11-04] MEDS: FLECAINIDE ACETATE 100 MG TAB PO SCH ×2 (10:08→20:13)
[2018-11-04] MEDS: FLUTICASONE HFA 110 MCG MDI IH SCH ×2 (10:20→19:53)
[2018-11-04] MEDS: guaiFENesin 600 MG TAB.ER PO SCH ×2 (11:26→20:12)
[2018-11-04] MEDS: ALBUTEROL 3 ML DEYVIAL IH PRN ×2 (12:22→18:36)
[2018-11-04] MEDS ORDERED: OSELTAMIVIR PHOSPHATE 75 MG CAP PO SCH (18:00)
[2018-11-04] MEDS ORDERED: LORazepam 0.5 MG TAB PO PRN (19:28)
[2018-11-04] MEDS: OMEGA-3 FATTY ACIDS 1,000 MG CAP PO SCH (20:11)
[2018-11-04] MEDS ORDERED: ASPIRIN 325 MG TAB PO SCH (21:00)
[2018-11-04] MEDS ORDERED: MONTELUKAST SODIUM 10 MG TAB PO SCH (21:00)
[2018-11-04] MEDS ORDERED: NEBIVOLOL HCL 5 MG TAB PO SCH (21:00)
--- NOTE | 2018-11-04 21:46 | CPEKG ---
Test Reason : OPEN Blood Pressure : / mmHG Vent. Rate : 071 BPM Atrial Rate : 071 BPM P-R Int : 313 ms QRS Dur : 112 ms QT Int : 427 ms P-R-T Axes : 230 -08 262 degrees QTc Int : 465 ms Atrial-paced rhythm Incomplete left bundle branch block Confirmed by Natalie Massey ([id number]) on 11/04/2018 9:46:07 PM Referred By: Natalie Massey Confirmed By:Natalie Massey
[2018-11-05] MEDS: ALBUTEROL 3 ML DEYVIAL IH PRN (04:51)
[2018-11-05] MEDS: FLUTICASONE HFA 110 MCG MDI IH SCH (04:52)
[2018-11-05 07:18] VITALS: BP 105/67
[2018-11-05] MEDS: guaiFENesin 600 MG TAB.ER PO SCH (08:04)
[2018-11-05] MEDS: FLECAINIDE ACETATE 100 MG TAB PO SCH (08:04)
[2018-11-05] MEDS: OSELTAMIVIR PHOSPHATE 75 MG CAP PO SCH (08:04)
[2018-11-05] MEDS: ENOXAPARIN 40 MG/0.4 ML SYR SC SCH (08:05)
[2018-11-05] MEDS ORDERED: Herbals/Supplements -Info Only PO SCH (09:00)
[2018-11-05] MEDS: OMEGA-3 FATTY ACIDS 1,000 MG CAP PO SCH (11:20)
--- NOTE | 2018-11-05 16:36 | GDS ---
[f rep st] DISCHARGE SUMMARY DISCHARGE DIAGNOSES: 1. Influenza A. 2. Cough. 3. Acute hypoxemic respiratory failure. 4. Mild intermittent asthma. 5. Hypertension. PHYSICAL EXAM: GENERAL: The patient is alert. VITAL SIGNS: Afebrile at 36.9, pulse 79, respirator y rate 20, blood pressure 105/67, and he is saturating greater than 90% on room air. I have seen and evaluated the patient on the day of discharge. HOSPITAL COURSE: The patient is an 82-year-old male, who presented to the hospital with complaints o f feeling ill. He was evaluated and diagnosed with: 1. Influenza A. During this hospitalization, he was treated with Tamiflu and placed on droplet prec autions. His symptoms are significantly better. His cough is decreased; however, we are still requi ring suppressive medications. 2. Acute hypoxemic respiratory failure. This is in the setting of influenza A and has resolved. 3. History of asthma. This appears to be stable with no acute exacerbation at the time of dispositi on. 4. Hypertension. His blood pressure is stable. DISPOSITION: The patient will be discharged home independently with his . FOLLOWUP: Followup will be with his primary care physician, Dr. Keshia Luke. DISCHARGE MEDICATIONS: Please refer to EMR form. I have provided the patient a prescription for Billie salon Perles, as well as Tamiflu. There are no pending studies. I have not adjusted his other previ ously prescribed home medications to the best of my knowledge. TIME SPENT WITH PATIENT: I spent greater than 35 minutes in the care, coordination, and management o f this patient's disposition. /[id number]/MODL
== END 2018-11-05 10:50 | disposition home or self-care (01) ==
LOC: CED 19:16 → CEDHOLD 21:21 → F3E 23:09
PROVIDERS: ADMIT Internal Medicine; ATTEND Family Medicine
DX: J10.1 Influenza due to other identified influenza virus with other respiratory manifestations (principal); R09.02 Hypoxemia; E86.9 Volume depletion, unspecified; J45.20 Mild intermittent asthma, uncomplicated; I10 Essential (primary) hypertension; Z95.0 Presence of cardiac pacemaker
CPT/HCPCS: 71046; 93005; 96360; 96372; 99285; G0378; J1650; J7613; 80053-ER; 83605-ER; 84484-ER

== ENCOUNTER → 2018-11-08 | Outpatient (CLI) | payer OTHER | LOC: CIMAGING 14:21 | PROVIDERS: ATTEND Nurse Practitioner | DX: J40 Bronchitis, not specified as acute or chronic (principal); Z95.0 Presence of cardiac pacemaker | CPT/HCPCS: 71046-PO ==